=== PATIENT | male | born 1975 | race Caucasian/White ===

== ENCOUNTER → 2017-12-01 13:12 | Outpatient (CLI) | payer OTHER, SELFPAY ==
--- NOTE | 2017-12-01 11:16 | DI.REPORT_ITS ---
SYMPTOM/DIAGNOSIS: PAIN, INJURY LT HAND S69.92XA, LT HAND PAIN M79.642 LEFT HAND: No fracture or dislocation is seen. IMPRESSION: Negative left hand.
== END ==
PROVIDERS: PCP Nurse Practitioner; Visit Provider Nurse Practitioner
DX: S69.92XA Unspecified injury of left wrist, hand and finger(s), initial encounter (principal); M79.642 Pain in left hand
CPT/HCPCS: 73130

== ENCOUNTER 2020-06-30 08:47 | Outpatient (CLI) | payer OTHER, SELFPAY ==
[2020-07-01 02:18] LABS: COVID-19 RT-PCR UVMMC Result Negative (Negative)
== END 2020-06-30 08:48 | disposition home or self-care (01) ==
PROVIDERS: PCP Nurse Practitioner; Visit Provider Nurse Practitioner Family
DX: Z20.822 Contact with and (suspected) exposure to COVID-19 (principal)
CPT/HCPCS: U0003

== ENCOUNTER 2020-11-06 09:34 | Outpatient (CLI) | payer OTHER, SELFPAY ==
[2020-11-06 19:23] LABS: COVID-19 RT-PCR UVMMC Result Negative (Negative)
== END 2020-11-06 09:35 | disposition home or self-care (01) ==
PROVIDERS: PCP Nurse Practitioner; Visit Provider Nurse Practitioner Family
DX: Z20.822 Contact with and (suspected) exposure to COVID-19 (principal)
CPT/HCPCS: U0003

== ENCOUNTER 2021-02-14 04:15 | Outpatient (CLI) | payer OTHER, SELFPAY ==
[2021-02-15 01:37] LABS: COVID-19 RT-PCR UVMMC Result Negative (Negative)
== END 2021-02-14 04:16 | disposition home or self-care (01) ==
LOC: LBO 04:15
PROVIDERS: PCP Nurse Practitioner; Visit Provider Nurse Practitioner Family
DX: Z20.822 Contact with and (suspected) exposure to COVID-19 (principal)
CPT/HCPCS: U0003

== ENCOUNTER 2021-02-26 15:23 | Outpatient (CLI) | payer OTHER, SELFPAY ==
[2021-02-28 15:45] LABS: COVID-19 RT-PCR UVMMC Result Negative (Negative)
== END 2021-02-26 15:24 | disposition home or self-care (01) ==
LOC: LBO 15:23
PROVIDERS: PCP Nurse Practitioner; Visit Provider Nurse Practitioner Family
DX: Z20.822 Contact with and (suspected) exposure to COVID-19 (principal)
CPT/HCPCS: U0003

== ENCOUNTER 2021-06-04 01:28 | Outpatient (CLI) | payer OTHER, SELFPAY ==
[2021-06-04 20:52] LABS: COVID-19 RT-PCR UVMMC Result Negative (Negative)
== END 2021-06-04 01:29 | disposition home or self-care (01) ==
LOC: LBO 01:28
PROVIDERS: Nurse Practitioner Family; PCP Nurse Practitioner; Visit Provider Nurse Practitioner Family
DX: Z20.822 Contact with and (suspected) exposure to COVID-19 (principal)
CPT/HCPCS: U0003

== ENCOUNTER 2021-06-22 01:50 | Outpatient (CLI) | payer OTHER, SELFPAY ==
[2021-06-22 21:01] LABS: COVID-19 RT-PCR UVMMC Result Negative (Negative)
== END 2021-06-22 01:51 | disposition home or self-care (01) ==
LOC: LBO 01:51
PROVIDERS: PCP Nurse Practitioner; Visit Provider Nurse Practitioner Family
DX: Z20.822 Contact with and (suspected) exposure to COVID-19 (principal)
CPT/HCPCS: U0003

== ENCOUNTER 2021-07-02 08:26 | Outpatient (CLI) | payer OTHER, SELFPAY ==
[2021-07-03 01:20] LABS: COVID-19 RT-PCR UVMMC Result Negative (Negative)
== END 2021-07-02 08:27 | disposition home or self-care (01) ==
PROVIDERS: PCP Nurse Practitioner; Visit Provider Nurse Practitioner Family
DX: Z20.822 Contact with and (suspected) exposure to COVID-19 (principal)
CPT/HCPCS: U0003

== ENCOUNTER 2021-09-18 09:00 | Day surgery (SDC) | payer OTHER, SELFPAY ==
--- NOTE | 2021-09-17 16:06 | COLE_ITS ---
Colonoscopy Report Date of procedure: 09/18/21 Pre-op diagnosis general: CRC screen Post-op diagnosis procedure note: other (normal) Surgeon: Afshan Pratt Anesthesia Type: General:No Airway Estimated blood loss (mL): 0 Pathology: none sent Complications: None Disposition: same day Prep: Miralax/Dulcolax Retraction Time: 8mins Procedure Description: After informed consent was obtained the patient was taken to the procedure room and placed in a left decubitous position. Monitors were applied and a time out was done. The patients name, date of , procedure, allergies to medications and metal in their body was reviewed. The patient was then sedated. Once sedate d and comfortable a rectal exam was done. External exam was normal. Internal exam revealed a normal sphincter tone and no palpable masses. The prostate nl. The scope was then introduced and retrofelexed. No internal hemorrhoids were identified. The scope was then advanced to the cecum without difficulty. The TI and appendiceal orifice were identified. The prep was BB PS 3 in all segments for a total of 9. The scope was then slowly retracted over 8 minutes back into the rectum. There are no polyps, AVMs, or diverticula visualized today. The mucosa is pink and healthy with a normal vascular pattern. Scope was removed and the patient was woken up and taken back to Same day surgery in stable condition. The patient tolerated the procedure well and there were no immediate complications. Follow up: The patient should follow up in 10 years unless they develop changes in bowel habits or other new gastrointestinal complaints.
--- NOTE | 2021-09-17 16:06 | PDOC.DSDIS_ITS ---
Discharge Plan Disposition Patient Disposition: HOME Condition: Good Discharge Details Reason For Visit: colon scope Attending Provider: Afshan Pratt Primary Care Provider: Aurora Pederson Home Meds and New Rx's Prescriptions: No Action cetirizine [Zyrtec] 10 mg tablet 10 mg PO DAILY bupropion HCl [Wellbutrin XL] 150 mg tablet extended release 24 hr 150 mg PO QAM Qty: 90 3RF sertraline 50 mg tablet 50 mg PO DAILY Qty: 90 3RF acetaminophen [Tylenol] 325 MG tablet 650 mg PO Q4H PRN ibuprofen 200 MG capsule 200 - 400 mg PO Q4H PRN Discharge Instructions Additional Instructions: DSU Colonoscopy Post- Op Instructions Instructions for Everyone who is given Anesthesia: For your safety, please do the following for the next twenty-four (24) hours: *Do Not operate a motor vehicle (car, truck, motorcycle, etc.) *Do Not drink alcoholic beverages or use any recreational drugs for the first 24 hours or while taking pain medications. The medications in your body may have a reaction that can be dangerous. *Do Not make any important decisions or sign any important papers. Findings: Normal Follow up: Repeat in 10 yrs time 1. No lifting over 20 pounds or strenuous activity for the first 24 hours after your procedure. After 24 hours there are no restrictions on your activity but you may feel fatigued for a few days. 2. After you arrive home you may have a light meal and return to your normal diet as you can tolerate it without feeling sick to your stomach. 3. You may have a bloated, gaseous feeling in your belly (abdomen) after a colonoscopy. Passing gas and belching will help. Walking or lying down on your left side with your knees flexed may relieve the discomfort. Call the office at [phone] (Office) or [phone] (Hospital) right away if you notice any of the following: a.Vomiting of blood or ?coffee ground stools?. b.Rectal bleeding 1Tbsp, blood clots or continuous bleeding. c.Severe belly (abdominal) pain. d.A hard distended belly (abdomen) and an inability to pass gas. 4. Please don?t expect to have a normal BM (bowel movement) for 2-3 days after your procedure. 5. If there are questions regarding the findings of your procedure, please contact your doctor 6. If you are unable to contact your doctor with a problem, contact the hospital at [phone]. 7. Continue all your regular medications unless directed otherwise. I understand the above instructions and have no questions. Signature of Patient or Adult Escort Name of Responsible Adult Escort Signature of Nurse Date/Time Activity:: see above Diet:: See above Discharge Orders Discharge Orders: Discharge Order (Routine); Ordered 09/17/21 Ordered By: Afshan Pratt
[2021-09-18 09:05] VITALS: BP 153/75; PULSE 77; RESP 18; TEMP 35.9; O2SAT 99
[2021-09-18] MEDS: Lactated Ringers 1,000 ML 80 ML IV (09:26)
--- NOTE | 2021-09-18 09:43 | W.ANESPRE ---
General Info Date of Service Date Performed: 09/18/21 Height: 5 ft 8 in Weight: 75.6 kg Body Mass Index (BMI): 25.3 Surgical Procedure: Operation Date: 09/18/21 10:35 Proposed Procedure Side Surgeon vera Pratt, Meds Allergies and Home Medications Allergies Allergy/AdvReac Type Severity Reaction Status Date / Time No Known Drug Allergies Allergy Verified 09/18/21 09:08 Home Medication Medication Instructions Recorded acetaminophen 325 mg tablet 650 mg PO Q4H PRN 04/12/16 (Tylenol) ibuprofen 200 mg capsule 200 - 400 mg PO Q4H PRN 04/12/16 cetirizine 10 mg tablet (Zyrtec) 10 mg PO DAILY 08/31/19 bupropion HCl 150 mg 24 hr tablet, 150 mg PO QAM #90 tabs 02/08/21 extended release (Wellbutrin XL) sertraline 50 mg tablet 50 mg PO DAILY #90 tabs 02/08/21 Current Visit Medications: Current Medications Generic Name Dose Route Start Last Admin Trade Name Yanq PRN Reason Stop Dose Admin Hyoscyamine Sulfate 0.125 mg 09/17/21 16:05 Hyoscyamine 0.125 Mg Sl/Oral/Chew SL DIRECTED PRN Ringer's Solution 1,000 mls @ 80 mls/hr 09/18/21 06:00 09/18/21 09:26 IV 10/14/21 23:59 80 mls/hr INFUSION CECILY Administration IV Miscellaneous Supplies 1 each 09/18/21 06:00 Iv Access IV 10/14/21 23:59 DIRECTED CECILY Ondansetron HCl 4 mg 09/17/21 16:05 Ondansetron 4 Mg/2 Ml Vial IVP Q4H PRN PRN Nausea / Vomiting Sodium Chloride 0 ml 09/18/21 06:00 Normal Saline Flush 10 Ml Syr IV 10/14/21 23:59 PRN PRN Sodium Chloride 0 ml 09/18/21 06:00 Normal Saline 10 Ml Vial IJ 10/14/21 23:59 DIRECTED PRN Sterile Water 0 ml 09/18/21 06:00 Water,Injection,Sterile 10 Ml Vial IJ 10/14/21 23:59 DIRECTED PRN PFSH Active Problems Active Problems: Problem Status Onset Code Encounter for screening colonoscopy Z12.11 Medical History Medical History Anxiety and depression back problems headaches joint pain Routine medical exam Tobacco Smoking/Tobacco Use Status: Never Passive smoking exposure: No Second hand exposure: No Alcohol Alcohol Intake: current Alcohol intake frequency: 0-2 drinks per day Alcohol type: beer Substance Use Substance use: Daily Substance use type: marijuana Vital Signs and Lab Results Vital Signs Most Recent Vital Signs in EMR: Most Recent Vital Signs Temp Pulse Resp BP Pulse Ox 35.9 C L 77 18 153/75 H 99 09/18/21 09:05 09/18/21 09:05 09/18/21 09:05 09/18/21 09:05 09/18/21 09:05 Lab Results Blood Type / Crossmatch: No Data to Display Complete Blood Count: No Data to Display Complete Metabolic Panel: No Data to Display Liver Function Panel: No Data to Display Coagulation Panel: No Data to Display Cardiac Panel: No Data to Display Arterial Blood Gas: No Data to Display Venous Blood Gas: No Data to Display Pancreas Panel: No Data to Display Thyroid Panel: No Data to Display Infectious Disease: No Data to Display Blood Cultures: No Data to Display Toxicology Panel: No Data to Display Anesthesia Assessment and Plan Anesthesia History Personal History: No History of Anesthesia Complications Family History: No Family History of Anesthesia Complications Exercise Tolerance Exercise Tolerance: Metabolic Equivalents>4 Pertinent Negatives Pertinent Negatives: No Symptoms of GERD, No Major Cardiovascular Symptoms or Complaints, No Major Pulmonary Symptoms or Complaints and No History of CVA/TIA Cardiac & Pulmonary Exam Cardiac Exam: Normal S1/S2 Heart Sounds Pulmonary Exam: Clear Bilateral Breath Sounds Implantable Cardiac Device Does patient have a Pacemaker or an ICD?: No Airway Exam Known Difficult Airway: No Mallampati Class: 2 Mouth Opening: Normal (> 3cm) Thyromental Distance: Greater than 3 cm Neck Range of Motion: Full ROM Neck Circumference: Normal Teeth Condition: Normal Dentition ASA Classification ASA Score: ASA 2 Emergency Case?: No NPO Status NPO Status: NPO Clears >2 hours, Solids >8 hours Anesthesia Plan Resuscitation Status: Full Code Anesthesia Technique: General Anesthesia Airway Planned: Natural Airway Monitors Used: Standard Monitors
[2021-09-18 10:20] VITALS: BMI 25.3
[2021-09-18 13:02] VITALS: BP 131/81; PULSE 77; RESP 18; TEMP 36.4; O2SAT 98
[2021-09-18 13:13] VITALS: BP 110/87; PULSE 70; RESP 18; TEMP 36.7; O2SAT 98
--- NOTE | 2021-09-18 13:43 | W.ANESPOSTOP ---
Postoperative Evaluation Date, Time and Location Date Performed: 09/18/21 Time Performed: 12:43 Patient Location: Day Surgery Unit Vital Signs Most Recent Imported Vital Signs: Most Recent Vital Signs Temp Pulse Resp BP Pulse Ox 36.7 C 70 18 110/87 98 09/18/21 13:13 09/18/21 13:13 09/18/21 13:13 09/18/21 13:13 09/18/21 13:13 Pain Score Most Recent Pain Score: Most Recent Pain Score Pain Level 0 09/18/21 13:13 Assessment Mental Status: Awake (Alert & Oriented to Patient Baseline) Airway and Respiratory Function: Patent airway with normal (patient baseline) respiratory exam Cardiovascular Function: Hemodynamically Stable Hydration Status: Adequately Hydrated Nausea & Vomiting: No Nausea or Vomiting Pain: Pt. Denies Any Pain Peripheral Nerve Block: Patient did not receive a nerve block
== END 2021-09-18 13:35 | disposition home or self-care (01) ==
PROVIDERS: PCP Nurse Practitioner; Visit Provider Surgery
PROC: 0DJD8ZZ Inspection of Lower Intestinal Tract, Via Natural or Artificial Opening Endoscopic (ICD-10-PCS; CPT 45378; principal; 2021-09-18 10:30)
DX: Z12.11 Encounter for screening for malignant neoplasm of colon (principal); F41.8 Other specified anxiety disorders
CPT/HCPCS: 45378

== ENCOUNTER 2022-06-07 00:56 | Outpatient (CLI) | payer OTHER, SELFPAY ==
[2022-06-07 08:49] LABS: HCT 43.7 % (40.0-50.0); HGB 15.1 g/dL (13.5-17.5); MCH 30.8 pg (27.0-33.0); MCHC 34.6 % (32.0-36.0); MCV 89 fL (80-95); MPV 9.7 fL (8.0-11.0); Platelet Count 311 10^3/uL (130-400); RBC 4.91 10^6/uL (4.36-5.78); RDW 12.1 % (11.8-14.1); RDW-SD 39.6 fL; WBC 5.81 10^3/uL (4.4-10.8)
[2022-06-07 09:26] LABS: ALT 30 U/L (16-63); AST 18 U/L (15-37); Alkaline Phosphatase 90 U/L (46-116); Anion Gap 6.2 mmol/L (3-11); BUN 16 mg/dL (7-18); Bilirubin, Total 0.4 mg/dL (0.2-1.0); CO2 29.8 mmol/L (21.0-32.0); CREATININE 0.9 mg/dL (0.70-1.30); Calcium 9.2 mg/dL (8.5-10.1); Calculated LDL 150 mg/dL (<100); Chloride 102 mmol/L (98-107); Cholesterol 255 mg/dL (<200); Estimated GFR 106.67 (mL/min/1.73m2); Glucose 107 mg/dL (74-106); HDL Cholesterol 44 mg/dL (40-60); Potassium 3.8 mmol/L (3.5-5.1); Sodium 138 mmol/L (136-145); Total Protein 7.5 g/dL (6.4-8.2); Triglyceride 308 mg/dL (<150)
== END 2022-06-07 00:57 | disposition home or self-care (01) ==
LOC: LBO 00:56
PROVIDERS: Absent Provider Nurse Practitioner; PCP Nurse Practitioner; Visit Provider Nurse Practitioner
DX: F32.9 Major depressive disorder, single episode, unspecified (principal); F41.9 Anxiety disorder, unspecified; Z13.220 Encounter for screening for lipoid disorders
CPT/HCPCS: 36415; 80053; 80061; 85027

== ENCOUNTER 2024-06-08 01:30 | Outpatient (CLI) | payer OTHER, SELFPAY ==
--- NOTE | 2024-06-08 07:15 | DI.MRI_ITS ---
Exam(s) MR UPPER JOINT LT WO EXAM: MR UPPER JOINT LT WO CLINICAL HISTORY: Persistent pain 1 month,lt shoulder strain,s46.232a. TECHNIQUE: Multiplanar multisequence MRI was performed. COMPARISON: No exams were available for comparison FINDINGS: BONES: There is no fracture or contusion pattern. JOINTS: The acromioclavicular joint is normal. The glenohumeral joint is normal. TENDONS: Supraspinatus: There is tendinosis of the supraspinatus tendon. No evidence of a tear. Infraspinatus: Unremarkable. Subscapularis: There is tendinosis of the subscapularis tendon without evidence of a tear. Teres Minor: Unremarkable. Biceps and [place]: Unremarkable. MUSCLES: Unremarkable. GLENOID LABRUM: Unremarkable on this noncontrast examination. SOFT TISSUES: Unremarkable. LIGAMENTS: Unremarkable. OTHER: There is a small amount of fluid in the subacromial subdeltoid bursa. IMPRESSION: 1. Supraspinatus and subscapularis tendinosis. No evidence of a rotator cuff tear. 2. No evidence of a labral tear is seen on this noncontrast examination. If there is continued ronald rn, an MR arthrogram may be obtained. 3. Small amount of fluid in the subacromial subdeltoid bursa which can be seen with bursitis. DATA REPOSITORY:
== END 2024-06-08 01:50 ==
LOC: DI 01:30
PROVIDERS: PCP Nurse Practitioner; Visit Provider Nurse Practitioner Family
DX: M75.32 Calcific tendinitis of left shoulder (principal)
CPT/HCPCS: 73221

== ENCOUNTER 2024-07-20 11:42 | Outpatient (CLI) | payer OTHER, SELFPAY ==
--- NOTE | 2024-07-20 10:30 | DI.RAD_ITS ---
Exam(s) XR SHOULDER LT COMPLETE 2+V EXAM: XR SHOULDER LT COMPLETE 2+V CLINICAL HISTORY: LEFT SHOULDER PAIN. TECHNIQUE: 2D digital imaging was performed of the left shoulder. Two images were obtained. Axilla ry and Grashey views were obtained. COMPARISON: MR MR UPPER JOINT LT WO from 06/08/2024 FINDINGS: BONES: No acute fracture is present. No bony destructive lesion is seen. JOINTS: No dislocation present. SOFT TISSUE: Normal. IMPRESSION: Unremarkable radiographs of the left shoulder. DATA REPOSITORY: RADIATION DOSE DELIVERED:
== END 2024-07-20 11:43 | disposition home or self-care (01) ==
LOC: DIORS 11:43
PROVIDERS: PCP Nurse Practitioner; Visit Provider Student in an Organized Health Care Education/Training Program
DX: S46.912A Strain of unspecified muscle, fascia and tendon at shoulder and upper arm level, left arm, initial encounter (principal); X58.XXXA Exposure to other specified factors, initial encounter; M25.512 Pain in left shoulder
CPT/HCPCS: 73030

== ENCOUNTER 2025-04-20 13:48 | Outpatient (CLI) | payer OTHER, SELFPAY ==
--- NOTE | 2025-04-20 13:45 | RT.EKG_ITS ---
APPROVED REPORT Exam: Resting ECG Reason for Exam: Palpitations Patient Location: O HR:68 bpm ECG Measurements Heart Rate 68 AXIS AR 114 P 57 QRSd 97 QRS 32 QT 395 T 39 QTc 421 Conclusion Sinus rhythm...normal P axis, V-rate 50- 99 Borderline short AR interval...AR int <120mS ST elev, probable normal early repol pattern...ST elevation, age<55 Otherwise normal ECG
== END 2025-04-20 13:49 | disposition home or self-care (01) ==
LOC: DI.KIM 13:49
DX: R00.2 Palpitations (principal)
CPT/HCPCS: 93010